=== PATIENT | female | born 1975 | race Caucasian/White ===

== ENCOUNTER 2017-05-06 16:37 | Emergency (ER) | payer OTHER ==
[2017-05-06 16:48] VITALS: BP 145/80
--- NOTE | 2017-05-06 17:14 | ER Document Report ---
HPI - HPI Onset: Other Onset/Duration: Gradual, Worse Quality of pain: Burning Severity: Moderate Pain Level: 4 Context: Patient states she thought she had a fever blister to right side of mouth and started putting [id number] cold sore medication on it it has progressively gotten worse, is losing, and patient has facial swelling to right lower jaw around mouth. Denies fever Associated Symptoms: None Exacerbated by: Denies Relieved by: Denies Similar symptoms previously: Yes Recently seen / treated by doctor: No - ROS ROS below otherwise negative: Yes Systems Reviewed and Negative: Yes All other systems reviewed and negative - CONSTITUTIONAL Constitutional: DENIES: Fever - EENT EENT: DENIES: Congestion - NEURO Neurology: DENIES: Headache - CARDIOVASCULAR Cardiovascular: DENIES: Chest pain - RESPIRATORY Respiratory: DENIES: Trouble Breathing - GASTROINTESTINAL Gastrointestinal: DENIES: Abdominal Pain - REPRODUCTIVE Reproductive: DENIES: : - DERM Skin Color: Erythema Skin Problems: Rash Past Medical History - General Information source: Patient - Social History Smoking Status: Current Every Day Smoker Cigarette use (# per day): Yes Frequency of alcohol use: Rare Drug Abuse: Marijuana Lives with: Family Family History: Reviewed & Not Pertinent Neurological Medical History: Reports: Hx Migraine Renal/ Medical History: Reports: Hx Kidney Stones Past Surgical History: Reports: Hx Cholecystectomy, Hx Gynecologic Surgery, Hx Orthopedic Surgery - right knee and left wrist carpal tunnel surgey, Hx Tubal Ligation - Immunizations Immunizations up to date: Yes Hx Diphtheria, Pertussis, Tetanus Vaccination: No Vertical Provider Document - CONSTITUTIONAL Agree With Documented VS: Yes Exam Limitations: No Limitations General Appearance: WD/WN, Mild Distress - INFECTION CONTROL TRAVEL OUTSIDE OF THE [place] IN LAST 30 DAYS: No - HEENT HEENT: Normal ENT Exam, PERRLA Notes: No swelling inside mouth to gums or tongue. - NECK Neck: Normal Inspection, Supple - RESPIRATORY Respiratory: Breath Sounds Normal, No Respiratory Distress O2 Sat by Pulse Oximetry: 98 - CARDIOVASCULAR Cardiovascular: Regular Rate, Regular Rhythm - MUSCULOSKELETAL/EXTREMETIES Musculoskeletal/Extremeties: MAEW - NEURO Level of Consciousness: Awake, Alert, Appropriate - DERM Integumentary: Warm, Dry, Rash - Mild edema with scabbed rash to chin and right side of mouth. Honey colored crusting noted. Moderate erythema. Course - Vital Signs Vital signs: Temp Pulse Resp BP Pulse Ox 98.2 F 77 145/80 H 98 05/06/17 16:46 05/06/17 16:46 05/06/17 16:46 05/06/17 16:46 Discharge - Discharge Clinical Impression: Rash and nonspecific skin eruption Condition: Good Disposition: HOME, SELF-CARE Additional Instructions: Your symptoms resemble impetigo, and you will be treated with oral and topical antibiotics. Cool compresses Tylenol or ibuprofen as needed Follow-up with your doctor Friday for recheck, earlier if worsens. Return as needed Prescriptions: Cephalexin [Cephalexin 500 MG Capsule] 1 cap PO QID #28 capsule Mupirocin [Bactroban 2% Ointment 22 gm] 22 applic TP TID #1 tube Forms: Return to Work
== END 2017-05-06 17:30 | disposition home or self-care (01) ==
LOC: ER 16:37
DX: R21 Rash and other nonspecific skin eruption (principal); F17.210 Nicotine dependence, cigarettes, uncomplicated
CPT/HCPCS: 99283

== ENCOUNTER 2017-06-13 13:03 | Emergency (ER) | payer OTHER ==
[2017-06-13 13:09] VITALS: BP 120/73
--- NOTE | 2017-06-13 14:50 | ER Document Report ---
ED General - General Mode of Arrival: Ambulatory Information source: Patient TRAVEL OUTSIDE OF THE [place] IN LAST 30 DAYS: No - HPI Patient complains to provider of: Right eye conjunctivitis Onset: This morning Associated symptoms: Other - see notes above - General Chief Complaint: Epigastric Pain Stated Complaint: EYE IRRITATION,REDNESS Time Seen by Provider: 06/13/17 14:43 Notes: 42-year-old female with history of gastric ulcers presents to the ED complaining of right eye conjunctivitis that started this morning. Patient reports that she woke up with a right eye swollen with yellow microcyst. Patient reports that she does not have contacts. Patient denies vision changes or pain. Patient additionally complaining of epigastric abdominal pain and heartburn for the past week. Patient has used Pepto for some relief. Epigastric pain is exacerbated after eating. Patient reports that she used to be on Prilosec over a year ago no and that helped with her gastric ulcers. Her current abdominal pain feels similar to her previous episodes with gastric ulcers. (EJ RILEY) - Related Data Allergies/Adverse Reactions: hydrocodone bitartrate [From Vicodin] Allergy (Verified 06/13/17 13:06) Past Medical History - General Information source: Patient - Social History Smoking Status: Current Every Day Smoker Chew tobacco use (# tins/day): No Frequency of alcohol use: Occasional Drug Abuse: Marijuana Family History: Reviewed & Not Pertinent Patient has suicidal ideation: No Patient has homicidal ideation: No Neurological Medical History: Reports: Hx Migraine Renal/ Medical History: Reports: Hx Kidney Stones. Denies: Hx Peritoneal Dialysis GI Medical History: Reports: Hx Gastroesophageal Reflux Disease, Hx Ulcer Past Surgical History: Reports: Hx Cholecystectomy, Hx Gynecologic Surgery, Hx Orthopedic Surgery - right knee and left wrist carpal tunnel surgey, Hx Tubal Ligation - Immunizations Immunizations up to date: Yes Hx Diphtheria, Pertussis, Tetanus Vaccination: No Review of Systems - Review of Systems Constitutional: No symptoms reported EENT: See HPI, Eye discharge - right eye, Other - right eye swelling and redness. denies: Eye pain, Blurred vision, Double vision Cardiovascular: No symptoms reported Respiratory: No symptoms reported Gastrointestinal: See HPI, Abdominal pain - epigastric Genitourinary: No symptoms reported Female Genitourinary: No symptoms reported Musculoskeletal: No symptoms reported Skin: No symptoms reported Hematologic/Lymphatic: No symptoms reported Neurological/Psychological: No symptoms reported -: Yes All other systems reviewed and negative Physical Exam - General General appearance: Alert In distress: None - HEENT Head: Normocephalic, Atraumatic Eyes: Other - right injected conjunctiva. No: Normal Conjunctiva: Injected - right Cornea: Normal Extraocular movements intact: Yes Pupils: PERRL - Respiratory Respiratory status: No respiratory distress Breath sounds: Normal - Cardiovascular Rhythm: Regular Heart sounds: Normal auscultation Murmur: No - Abdominal Inspection: Normal Bowel sounds: Normal Tenderness: Nontender - Back Back: Normal - Extremities General upper extremity: Normal inspection, Normal color General lower extremity: Normal inspection, Normal color - Neurological Neuro grossly intact: Yes Cognition: Normal Orientation: AAOx4 Iliana Coma Scale Eye Opening: Spontaneous Cornelius Coma Scale Verbal: Oriented Cornelius Coma Scale Motor: Obeys Commands Iliana Coma Scale Total: 15 Speech: Normal - Psychological Associated symptoms: Normal affect, Normal mood - Skin Skin Temperature: Warm Skin Moisture: Dry Skin Color: Normal - Vital signs Vitals: Temp Pulse Resp BP Pulse Ox 98.2 F 71 16 120/73 96 06/13/17 13:09 06/13/17 13:09 06/13/17 13:09 06/13/17 13:09 06/13/17 13:09 Course - Re-evaluation Re-evalutation: 06/13/17 15:05 Patient well-appearing with signs and symptoms consistent with conjunctivitis. No vision changes. No eye pain other than itchiness and purulent discharge states. Patient states that she has been having sharp epigastric pain worse after eating has not been compliant with her Prilosec. She states symptoms are identical to previous gastritis symptoms. Will provide erythromycin ointment for her eyes as well as placed patient on Zantac for gastritis with chest pain return precautions provided (SURYA MACHADO) - Vital Signs Vital signs: Temp Pulse Resp BP Pulse Ox 98.2 F 71 16 120/73 96 06/13/17 13:09 06/13/17 13:09 06/13/17 13:09 06/13/17 13:09 06/13/17 13:09 Discharge - Discharge Clinical Impression: Conjunctivitis, Gastritis Condition: Stable Disposition: HOME, SELF-CARE Instructions: Conjunctivitis ([facility]), Gastritis ([facility]) Prescriptions: Ranitidine HCl [Zantac 150 mg Tablet] 150 mg PO BID PRN #60 tablet PRN Reason: Forms: Return to Work Scribe Documentation - Scribe Written by Timibe:: Luz Marina Jackson, 06/13/2017 [id number] acting as scribe for :: Beck
[2017-06-13] MEDS ORDERED: ERYTHROMYCIN 0.5% OPH OINT 1 GM UNIT DOSE OU ONE (14:51)
== END 2017-06-13 15:06 | disposition home or self-care (01) ==
LOC: ER 13:03
DX: H10.9 Unspecified conjunctivitis (principal); K29.70 Gastritis, unspecified, without bleeding; R10.13 Epigastric pain; F17.200 Nicotine dependence, unspecified, uncomplicated; Z88.6 Allergy status to analgesic agent; Z87.442 Personal history of urinary calculi; Z90.49 Acquired absence of other specified parts of digestive tract; Z98.51 Tubal ligation status
CPT/HCPCS: 99283

== ENCOUNTER 2020-07-06 11:31 | Emergency (ER) | payer OTHER ==
[2020-07-06] MEDS ORDERED: KETOROLAC TROMETHAMINE INJ/PF 30 MG/1 ML SDV IV ONE (13:19)
[2020-07-06] MEDS ORDERED: ONDANSETRON HCL INJ/PF 4 MG/2 ML SDV IV ONE (13:20)
[2020-07-06] MEDS ORDERED: NORMAL SALINE 1000 ML 1,000 ML IV ONE (13:20)
--- NOTE | 2020-07-06 13:22 | ER Document Report ---
ED Medical Screen (RME) - General Chief Complaint: Nausea/Vomiting Stated Complaint: NAUSEA VOMITING Time Seen by Provider: 07/06/20 13:17 Mode of Arrival: Ambulatory Information source: Patient Notes: 45-year-old female presents to ED for complaint of nausea vomiting headache since yesterday. She states she is vomiting so much that she cannot keep any food or fluid down. She does have a history of a hysterectomy. She states her smell is decreased now. She states she is getting weak and tired from so much nausea and vomiting. She states she does take medicine for reflux and she is n ot even able to keep her medicine down. States she does have a cough she states she always has a runny nose so she does not notice the difference there she had a procedure on her teeth and it caused her to have a runny nose. States she does smoke half a pack to a pack a day. Alcohol 1-3 times a year no drugs. She has a history of a cholecystectomy and all of her teeth removed.. I have greeted and performed a rapid initial assessment of this patient. A comprehensive ED assessment and evaluation of the patient, analysis of test results and completion of medical decision making process will be conducted by an additional ED providers. TRAVEL OUTSIDE OF THE [place] IN LAST 30 DAYS: No - Related Data Allergies/Adverse Reactions: hydrocodone bitartrate [From Vicodin] Allergy (Verified 06/13/17 13:06) Past Medical History Neurological Medical History: Reports: Hx Migraine Renal/ Medical History: Reports: Hx Kidney Stones. Denies: Hx Peritoneal Dialysis GI Medical History: Reports: Hx Gastroesophageal Reflux Disease, Hx Ulcer Past Surgical History: Reports: Hx Cholecystectomy, Hx Gynecologic Surgery, Hx Orthopedic Surgery - right knee and left wrist carpal tunnel surgey, Hx Tubal Ligation - Immunizations Immunizations up to date: Yes Hx Diphtheria, Pertussis, Tetanus Vaccination: No Physical Exam - Vital signs Vitals: Temp Pulse Resp BP Pulse Ox 98.5 F 92 16 129/78 H 98 07/06/20 11:44 07/06/20 11:44 07/06/20 11:44 07/06/20 11:44 07/06/20 11:44 Course - Vital Signs Vital signs: Temp Pulse Resp BP Pulse Ox 98.5 F 92 16 129/78 H 98 07/06/20 11:44 07/06/20 11:44 07/06/20 11:44 07/06/20 11:44 07/06/20 11:44
[2020-07-06 13:53] LABS: APPEARANCE,URINE SLIGHTLY-CLOUDY; BILIRUBIN,URINE NEGATIVE (NEGATIVE); COLOR,URINE YELLOW; GLUCOSE, URINE NEGATIVE (NEGATIVE); KETONES,URINE 20 mg/dL (NEGATIVE); LEUKOCYTE ESTERASE,URINE NEGATIVE (NEGATIVE); NITRITE,URINE NEGATIVE (NEGATIVE); PROTEIN,URINE 30 mg/dL (NEGATIVE); URINE SPECIFIC GRAVITY 1.032; UROBILINOGEN,URINE NEGATIVE mg/dL (<2.0)
--- NOTE | 2020-07-06 14:05 | RADIOLOGY REPORT (SQ) ---
EXAM DESCRIPTION: CHEST SINGLE VIEW IMAGES COMPLETED DATE/TIME: 07/06/2020 1:53 pm REASON FOR STUDY: cough COMPARISON: 10/24/2015 EXAM PARAMETERS: NUMBER OF VIEWS: One view. TECHNIQUE: Single frontal radiographic view of the chest acquired. RADIATION DOSE: NA LIMITATIONS: None. FINDINGS: LUNGS AND PLEURA: No opacities, masses or pneumothorax. No pleural effusion. MEDIASTINUM AND HILAR STRUCTURES: No masses. Contour normal. HEART AND VASCULAR STRUCTURES: Heart normal in size. Normal vasculature. BONES: No acute findings. HARDWARE: None in the chest. OTHER: No other significant finding. IMPRESSION: 1. NO ACUTE RADIOGRAPHIC FINDING IN THE CHEST. TECHNICAL DOCUMENTATION: JOB ID: [id number] 2010 [employer]- All Rights Reserved Reading location - IP/workstation name: [email or web address]
--- NOTE | 2020-07-06 14:24 | ER Document Report ---
ED General - General Chief Complaint: Nausea/Vomiting Stated Complaint: NAUSEA VOMITING Time Seen by Provider: 07/06/20 13:17 Mode of Arrival: Ambulatory Notes: CHIEF COMPLAINT: Multiple complaints HPI: 45-year-old female presenting with multiple complaints. Has had a generalized headache for the last 5 days. Has developed a slight cough over the last 2 days. Low-grade fevers at home. Generalized body ache. Has had multiple episodes of nausea vomiting over the last 24 hours without abdominal pain. No dysuria. Patient states she lost her sense of taste this morning. Patient does smoke a pack of cigarettes a day ROS: See HPI - all other systems were reviewed and are otherwise negative Constitutional: + fever Eyes: no drainage, no blurred vision ENT: no runny nose, no sore throat Cardiovascular: no chest pain Resp: no SOB, + cough GI: + vomiting, no diarrhea, no abdominal pain : no dysuria Integumentary: no rash Allergy: no hives Musculoskeletal: no extremity pain or swelling, positive myalgia Neurological: no numbness/tingling, no weakness, positive headache MEDICATIONS: I agree with the patient medications as charted by the RN. ALLERGIES: I agree with the allergies as charted by the RN. PAST MEDICAL HISTORY/PAST SURGICAL HISTORY: Reviewed and agree as charted by RN. SOCIAL HISTORY: Reviewed and agree as charted by RN. FAMILY HISTORY: No significant familial comorbid conditions directly related to patient complaint EXAM: Reviewed vital signs as charted by RN. CONSTITUTIONAL: Alert and oriented and responds appropriately to questions. Well-appearing; well-nourished HEAD: Normocephalic; atraumatic EYES: PERRL; Conjunctivae clear, sclerae non-icteric ENT: normal nose; no rhinorrhea; moist mucous membranes; pharynx without lesions noted, no uvula edema or deviation, no tonsillar hypertrophy, phonation normal NECK: Supple without meningismus; non-tender; no cervical lymphadenopathy, no masses CARD: RRR; no murmurs, no clicks, no rubs, no gallops; symmetric distal pulses RESP: Normal chest excursion without splinting or tachypnea; breath sounds clear and equal bilaterally; no wheezes, no rhonchi, no rales, pulse oximetry 97% on room air not hypoxic ABD/GI: Normal bowel sounds; non-distended; soft, non-tender, no rebound, no guarding; no palpable organomegaly or masses. BACK: The back appears normal and is non-tender to palpation, there is no CVA tenderness EXT: Normal ROM in all joints; non-tender to palpation; no cyanosis, no effusions, no edema SKIN: Normal color for age and race; warm; dry; good turgor; no acute lesions noted NEURO: Moves all extremities equally; Motor and sensory function intact PSYCH: The patient's mood and manner are appropriate. Grooming and personal hygiene are appropriate. MDM: 45-year-old female presenting with Covid-like symptoms. Headache, low- grade fever, myalgia, cough, vomiting. No abdominal pain on exam. No nuchal rigidity suggesting meningitis at this time. Initial screening labs and testing ordered via triage process. Will reassess The patient was evaluated during the global COVID-19 pandemic and that diagnosis was suspected/considered upon their initial presentation. Their evaluation, treatment and testing was consistent with current guidelines for patients who present with complaints or symptoms that may be related to COVID-19 TRAVEL OUTSIDE OF THE [place] IN LAST 30 DAYS: No - Related Data Allergies/Adverse Reactions: hydrocodone bitartrate [From Vicodin] Allergy (Verified 06/13/17 13:06) Past Medical History - General Information source: Patient - Social History Smoking Status: Current Every Day Smoker Family History: Reviewed & Not Pertinent Neurological Medical History: Reports: Hx Migraine Renal/ Medical History: Reports: Hx Kidney Stones. Denies: Hx Peritoneal Dialysis GI Medical History: Reports: Hx Gastroesophageal Reflux Disease, Hx Ulcer Past Surgical History: Reports: Hx Cholecystectomy, Hx Gynecologic Surgery, Hx Orthopedic Surgery - right knee and left wrist carpal tunnel surgey, Hx Tubal Ligation - Immunizations Immunizations up to date: Yes Hx Diphtheria, Pertussis, Tetanus Vaccination: No Physical Exam - Vital signs Vitals: Temp Pulse Resp BP Pulse Ox 98.5 F 92 16 129/78 H 98 07/06/20 11:44 07/06/20 11:44 07/06/20 11:44 07/06/20 11:44 07/06/20 11:44 Course - Re-evaluation Re-evalutation: 07/06/20 15:30 Patient states headache is somewhat improved but still having pressure in the sinuses. Covid test pending. Influenza strep negative. Other lab work does not show acute abnormalities other than UTI. Will place patient on Macrobid for UTI although she is asymptomatic for dysuria. Plan to treat at home self quarantine pending Covid result she is 5 days and on symptoms at this point. If patient continues with headaches or develops worsening neck pain that is not improving she will likely need to return for further work-up and evaluation. I did discuss lumbar puncture with the patient at this time and she is not incline d to have lumbar puncture at this time. - Vital Signs Vital signs: Temp Pulse Resp BP Pulse Ox 98.5 F 92 16 129/78 H 98 07/06/20 11:44 07/06/20 11:44 07/06/20 11:44 07/06/20 11:44 07/06/20 11:44 - Laboratory Results Result Diagrams: 07/06/20 14:01 07/06/20 14:01 Laboratory Results Interpreted: 07/06/20 07/06/20 07/06/20 13:29 14:01 14:01 MCV 100 H MCH 34.7 H RDW 15.1 H Calcium 10.4 H Urine Protein 30 H Urine Ketones 20 H Critical Laboratory Results Reviewed: No Critical Results - Radiology Results Critical Radiology Results Reviewed: No Critical Results Discharge - Discharge Clinical Impression: Person under investigation for COVID-19, Cough, Tobacco abuse UTI (urinary tract infection) Qualifiers: Urinary tract infection type: acute cystitis Hematuria presence: with hematuria Qualified Code(s): N30.01 - Acute cystitis with hematuria Headache Qualifiers: Headache type: unspecified Headache chronicity pattern: unspecified pattern Intractability: intractable Qualified Code(s): R51.9 - Headache, unspecified Condition: Stable Disposition: HOME, SELF-CARE Instructions: Vomiting ([facility]), COVID-19 Guidance for Persons Under Investigation, Urinary Tract Infection, Child ([facility]) Additional Instructions: Take the medications as prescribed for headache. Take the Macrobid for urinary infection. You are considered a person under investigation for COVID-19 at this time self quarantine pending test results. Test results may take 2 to 5 days you should receive notification from the hospital about your test results. If you have worsening headache or neck pain, high fevers greater than 101 or worsening symptoms return for reevaluation as discussed Prescriptions: Nitrofurantoin Monohyd/M-Cryst [Macrobid 100 mg Capsule] 100 mg PO BID #14 cap Diclofenac Sodium [Voltaren 50 Mg Tablet.] 50 mg PO BID #20 tablet. Ondansetron [Zofran Odt 4 mg Tablet] 1 - 2 tab PO Q4H PRN #15 tab.rapdis PRN Reason: For Nausea/Vomiting Referrals: MARIELLA NUGENT MD [[facility]ITY [facility]ED STAFF] - Follow up as needed
[2020-07-06 14:31] LABS: ABSOLUTE BASOPHILS # (AUTO) 0.1 10^3/uL (0.0-0.2); ABSOLUTE EOSINOPHILS # (AUTO) 0.1 10^3/uL (0.0-0.6); ABSOLUTE LYMPHOCYTES (AUTO) 1.4 10^3/uL (0.5-4.7); ABSOLUTE MONOCYTES (AUTO) 0.4 10^3/uL (0.1-1.4); EOSINOPHILS % (AUTO) 1.4 % (0-6); HEMATOCRIT 39.7 % (36.0-47.0); HEMOGLOBIN 13.8 g/dL (12.0-15.5); LYMPHOCYTES % (AUTO) 23.7 % (13-45); MEAN CORPUSCULAR HEMOGLOBIN 34.7 pg (27.0-33.4); MEAN CORPUSCULAR HGB CONC 34.8 g/dL (32.0-36.0); MEAN CORPUSCULAR VOLUME 100 fl (80-97); PLATELET COUNT 307 10^3/uL (150-450); RED BLOOD COUNT 3.97 10^6/uL (3.72-5.28); RED CELL DISTRIBUTION WIDTH 15.1 % (11.5-14.0); SEGMENTED NEUTROPHILS % (AUTO) 67.9 % (42-78); TOTAL CELLS COUNTED % (AUTO) 100 %; WHITE BLOOD COUNT 5.9 10^3/uL (4.0-10.5)
[2020-07-06 14:52] LABS: A TYPE INFLUENZA AG NEGATIVE (NEGATIVE); B INFLUENZA AG NEGATIVE (NEGATIVE)
[2020-07-06 14:56] LABS: ALBUMIN 4.6 g/dL (3.5-5.0); ALKALINE PHOSPHATASE 87 U/L (38-126); ANION GAP 13 (5-19); ASPARTATE AMINO TRANSFERASE 32 U/L (14-36); BILIRUBIN,DIRECT 0.2 mg/dL (0.0-0.4); BILIRUBIN,TOTAL 0.4 mg/dL (0.2-1.3); BLOOD UREA NITROGEN 13 mg/dL (7-20); CALCIUM 10.4 mg/dL (8.4-10.2); CARBON DIOXIDE 23 mmol/L (22-30); CHLORIDE 107 mmol/L (98-107); GLUCOSE 81 mg/dL (75-110); POTASSIUM 3.6 mmol/L (3.6-5.0); TOTAL PROTEIN 7.8 g/dL (6.3-8.2)
[2020-07-06] MEDS ORDERED: CEFTRIAXONE 1 GM/D5W RTU 1 GM/50 ML RTUPB IV ONE (15:22)
[2020-07-06] MEDS ORDERED: OXYCODONE-ACETAMINOPHEN 5-325 MG TABLET PO ONE (15:30)
[2020-07-06 16:35] VITALS: BP 140/73
== END 2020-07-06 18:00 | disposition home or self-care (01) ==
LOC: ER 11:31
DX: N30.01 Acute cystitis with hematuria (principal); R11.2 Nausea with vomiting, unspecified; R51.9 Headache, unspecified; R05 Cough; R50.9 Fever, unspecified; F17.200 Nicotine dependence, unspecified, uncomplicated; Z20.828 Contact with and (suspected) exposure to other viral communicable diseases
CPT/HCPCS: 99284; 96361; 96375; 96365; 36415; 87070; 87086; 87880; 85025; 87088; 80053; 81001; 87804; 71045; J1885; J2405; J7030; J0696